=== PATIENT | female | born 1975 | race Caucasian/White ===

== ENCOUNTER 2017-04-06 19:23 | Emergency (ER) | payer SELFPAY ==
[2017-04-06] MEDS ORDERED: Sodium Chloride 0.9% 2.5 ML Syringe FLUSH PRN (19:36)
[2017-04-06] MEDS ORDERED: Famotidine 20 MG/2 ML SDV IVPUSH ONE (19:36)
[2017-04-06] MEDS ORDERED: Aspirin 81 MG Tab.Chew PO ONE (19:36)
[2017-04-06] MEDS ORDERED: Sodium Chloride 0.9% 1,000 ML IV ONE (19:36)
[2017-04-06] MEDS ORDERED: Sodium Chloride 0.9% 10 ML Syringe FLUSH PRN (19:36)
--- NOTE | 2017-04-06 19:41 | EDM.PDOC ---
ED HPI GENERAL MEDICAL PROBLEM - General Chief Complaint: Chest Pain Stated Complaint: CHEST PAIN Time Seen by Provider: 04/06/17 19:28 - History of Present Illness INITIAL COMMENTS - FREE TEXT/NARRATIVE: HISTORY AND PHYSICAL: History of present illness: The patient is a 42-year-old female with a history of asthma and allergies to dust recently moved here 2 months ago and presents with complaints of lower mid chest pain and epigastric discomfort that woke her from sleep at 5:30 this morning. The patient states that for the last 1 week she has had issues with foods bothering her, meaning that she feels like they're upsetting her stomach and/or the smell making her feel somewhat nauseated And she has never had those issues before. The patient states she had a normal day yesterday and slept fine when she woke at 5:30 and noticed this discomfort which was a pressure aching pain at the lower part of her chest and her mid abdomen and radiated to the left and to the right. She felt sweaty and short of breath as well as nauseated at that time. She had no vomiting or diarrhea. She says that the discomfort was very strong from 5:30 to 10:30 this morning and then seemed to ease up but it has been constant throughout the day starting at 5:30 AM until present presentation, 10 hours later.. She did not come here because she has no insurance. Patient does not take any medication for this discomfort and it has been persistent all day. When started she rates it as a 10 over 10 and currently in the ER she rates as 8/10. Patient has no significant social history no cardiac family history. She has no recent trauma. She has no upper respiratory symptoms such as cough runny nose or sore throat and she does not feel like her asthma is flaring up. Patient had a total hysterectomy and has no history of GI problems. Patient has no leg pain or leg asymmetry Review of systems: As per history of present illness and below otherwise all systems reviewed and negative. Past medical history: As per history of present illness and as reviewed below otherwise noncontributory. Surgical history: As per history of present illness and as reviewed below otherwise noncontributory. Social history: No reported history of drug or alcohol abuse. Family history: As per history of present illness and as reviewed below otherwise noncontributory. Physical exam: Gen.: Well-developed overweight female who is nontoxic and speaking clearly and easily in the ED. She moves without distress. HEENT: Atraumatic, normocephalic, pupils reactive, negative for conjunctival pallor or scleral icterus, mucous membranes moist, throat clear, neck supple, nontender, trachea midline. Lungs: Clear to auscultation, breath sounds equal bilaterally, chest nontender. Heart: S1S2, regular, negative for clicks, rubs, or JVD. Abdomen: Soft, nondistended, there is mild tenderness in the epigastrium on palpation but no rebound or guarding. Bowel sounds are hypoactive Negative for masses or hepatosplenomegaly. Negative for costovertebral tenderness. Pelvis: Stable nontender. Genitourinary: Deferred. Rectal: Deferred. Extremities: Atraumatic, negative for cords or calf pain. Neurovascular unremarkable. No pedal edema or leg asymmetry is noted Neuro: Awake, alert, oriented. Cranial nerves II through XII unremarkable. Cerebellum unremarkable. Motor and sensory unremarkable throughout. Exam nonfocal. Diagnostics: EKG CBC CMP amylase lipase troponin chest x-ray We'll consider CT scan of the abdomen and pelvis pending the above results Therapeutics: IV O2 monitor aspirin IV fluids nitroglycerin sublingual 2003: After 2 sublingual nitroglycerin the patient's pain is completely relieved. We'll place half inch of nitro paste and continue with our workup. 2100: I discussed with the patient at length my recommendation for observation admission and the need for further testing as it is unclear the cause of her pain. She did improve with nitroglycerin. She is currently deciding if she wants to stay or not she has financial concerns. She understands the risks of not staying in the hospital and of my concerns and is awake alert and competent and accepts those risks if she opts to go home. 2117: After consideration and discussion with family via telephone the patient would like to choose to go home and follow-up in the clinic for an expedited follow-up and outpatient management. She is aware of my concerns and the risks involved and accepts all of that. Impression: Atypical chest pain etiology unclear refusing admission Definitive disposition and diagnosis as appropriate pending reevaluation and review of above. Middle Chest Pain Score (Numeric/FACES): 8 - Related Data Allergies Allergy/AdvReac Type Severity Reaction Status Date / Time Penicillins Allergy Hives Verified 04/06/17 19:37 Sulfa (Sulfonamide Allergy Vomiting Verified 04/06/17 19:37 Antibiotics) Home Meds: Home Meds . [No Known Home Meds] 04/06/17 [History] ED ROS GENERAL - Review of Systems Review Of Systems: ROS reveals no pertinent complaints other than HPI. ED EXAM, GENERAL - Physical Exam Exam: See Below (See dictation) Course - Vital Signs Last Recorded V/S: Last Vital Signs Temp 36.8 C 04/06/17 20:55 Pulse 69 04/06/17 20:55 Resp 18 04/06/17 20:55 BP 107/73 04/06/17 20:55 Pulse Ox 98 04/06/17 20:55 - Orders/Labs/Meds Orders: Active Orders 24 hr Category Date Time Status Cardiac Monitoring [RC] . DIRECTED Care 04/06/17 19:36 Active EKG Documentation Completion [RC] STAT Care 04/06/17 19:36 Active Oxygen Therapy, ED [RC] ASDIRECTED Care 04/06/17 19:36 Active Pulse Oximetry [RC] ASDIRECTED Care 04/06/17 19:36 Active Chest 1V Frontal [CR] Stat Exams 04/06/17 19:36 Taken Sodium Chloride 0.9% [Saline Flush] Med 04/06/17 19:36 Active 10 ml FLUSH ASDIRECTED PRN Sodium Chloride 0.9% [Saline Flush] Med 04/06/17 19:36 Active 2.5 ml FLUSH ASDIRECTED PRN Saline Lock Insert [OM.PC] Stat Oth 04/06/17 19:36 Ordered Medication Orders Sodium Chloride (Saline Flush) 10 ml FLUSH ASDIRECTED PRN PRN Reason: Keep Vein Open Sodium Chloride (Saline Flush) 2.5 ml FLUSH ASDIRECTED PRN PRN Reason: Keep Vein Open Labs: Laboratory Tests 04/06/17 04/06/17 04/06/17 Range/Units 19:40 19:40 19:40 WBC 8.78 (4.0-11.0) K/uL RBC 4.69 (4.30-5.90) M/uL Hgb 13.9 (12.0-16.0) g/dL Hct 42.5 (36.0-46.0) % MCV 90.6 (80.0-98.0) fL MCH 29.6 (27.0-32.0) pg MCHC 32.7 (31.0-37.0) g/dL RDW Std Deviation 44.1 (28.0-62.0) fl RDW Coeff of [place] 13 (11.0-15.0) % Plt Count 315 (150-400) K/uL MPV 10.30 (7.40-12.00) fL Neut % (Auto) 65.2 (48.0-80.0) % Lymph % (Auto) 25.2 (16.0-40.0) % [place] % (Auto) 7.4 (0.0-15.0) % Eos % (Auto) 2.1 (0.0-7.0) % Baso % (Auto) 0.1 (0.0-1.5) % Neut # (Auto) 5.7 (1.4-5.7) K/uL Lymph # (Auto) 2.2 (0.6-2.4) K/uL [place] # (Auto) 0.7 (0.0-0.8) K/uL Eos # (Auto) 0.2 (0.0-0.7) K/uL Baso # (Auto) 0.0 (0.0-0.1) K/uL Nucleated RBC % 0.0 /100WBC Nucleated RBCs # 0 K/uL Sodium 141 (136-146) mmol/L Potassium 4.0 (3.5-5.1) mmol/L Chloride 110 (98-110) mmol/L Carbon Dioxide 21 (21-31) mmol/L BUN 9 (6.0-23.0) mg/dL Creatinine 0.9 (0.6-1.5) mg/dL Est Cr Clr Drug Dosing 74.02 mL/min Estimated GFR (MDRD) > 60.0 ml/min Glucose 104 (60-110) mg/dL Calcium 8.7 L (8.8-10.8) mg/dL Total Bilirubin 0.3 (0.1-1.5) mg/dL AST 22 (5-40) IU/L ALT 20 (8-54) IU/L Alkaline Phosphatase 61 (40-150) Troponin I < 0.10 (0.0-0.29) NG/ML Total Protein 7.1 (6.0-8.0) g/dL Albumin 4.4 (3.5-5.0) g/dL Globulin 2.7 (2.0-3.5) g/dL Albumin/Globulin Ratio 1.6 (1.3-2.8) Amylase 34 (10-90) U/L Lipase 21 (7-80) U/L Meds: Medications Generic Name Dose Route Start Last Admin Trade Name Freq PRN Reason Stop Dose Admin Sodium Chloride 10 ml 04/06/17 19:36 Saline Flush FLUSH ASDIRECTED PRN Keep Vein Open Sodium Chloride 2.5 ml 04/06/17 19:36 Saline Flush FLUSH ASDIRECTED PRN Keep Vein Open Discontinued Medications Generic Name Dose Route Start Last Admin Trade Name Freq PRN Reason Stop Dose Admin Acetaminophen 1,000 mg 04/06/17 20:07 04/06/17 20:13 Tylenol Extra Strength PO 04/06/17 20:08 1,000 mg ONETIME ONE Administration Aspirin 324 mg 04/06/17 19:36 04/06/17 19:55 Aspirin PO 04/06/17 19:37 324 mg ONETIME ONE Administration Famotidine 20 mg 04/06/17 19:36 04/06/17 19:56 Pepcid IVPUSH 04/06/17 19:37 20 mg ONETIME ONE Administration Sodium Chloride 1,000 mls @ 999 mls/hr 04/06/17 19:36 04/06/17 19:56 Normal Saline IV 04/06/17 20:36 999 mls/hr STAT ONE Administration Nitroglycerin 0.4 mg 04/06/17 19:45 04/06/17 20:06 Nitrostat SL 04/06/17 19:56 Not Given Q5M DARCI Nitroglycerin 0.5 gm 04/06/17 20:07 04/06/17 20:13 Nitro-Bid 2% TOP 04/06/17 20:08 0.5 gm ONETIME ONE Administration Departure - Departure Time of Disposition: 21:20 Disposition: Home, Self-Care 01 Condition: Good Clinical Impression: Atypical chest pain, Care refused by patient - Discharge Information Forms: ED Department Discharge Additional Instructions: The following information is given to patients seen in the emergency department who are being discharged to home. This information is to outline your options for follow-up care. We provide all patients seen in our emergency department with a follow-up referral. The need for follow-up, as well as the timing and circumstances, are variable depending upon the specifics of your emergency department visit. If you don't have a primary care physician on staff, we will provide you with a referral. We always advise you to contact your personal physician following an emergency department visit to inform them of the circumstance of the visit and for follow-up with them and/or the need for any referrals to a consulting specialist. The emergency department will also refer you to a specialist when appropriate. This referral assures that you have the opportunity for followup care with a specialist. All of these measure are taken in an effort to provide you with optimal care, which includes your followup. Under all circumstances we always encourage you to contact your private physician who remains a resource for coordinating your care. When calling for followup care, please make the office aware that this follow-up is from your recent emergency room visit. If for any reason you are refused follow-up, please contact the [facility] emergency department at and ask to speak to the emergency department charge nurse. [facility] Primary care- [place] [address] Please contact the clinic tomorrow for an expedited ED follow-up clinic appointment as we discussed. If you have difficulty getting in the next few days please call the ER and speak to the charge nurse. Please take a baby aspirin every day and to you're followed up in the clinic and return to the ER as needed and as discussed. Please eat a low-fat diet. - My Orders Last 24 Hours: My Active Orders 04/06/17 19:36 Cardiac Monitoring [RC] . DIRECTED EKG Documentation Completion [RC] STAT Oxygen Therapy, ED [RC] ASDIRECTED Pulse Oximetry [RC] ASDIRECTED Chest 1V Frontal [CR] Stat Sodium Chloride 0.9% [Saline Flush] 10 ml FLUSH ASDIRECTED PRN Sodium Chloride 0.9% [Saline Flush] 2.5 ml FLUSH ASDIRECTED PRN Saline Lock Insert [OM.PC] Stat - Assessment/Plan Last 24 Hours: My Active Orders 04/06/17 19:36 Cardiac Monitoring [RC] . DIRECTED EKG Documentation Completion [RC] STAT Oxygen Therapy, ED [RC] ASDIRECTED Pulse Oximetry [RC] ASDIRECTED Chest 1V Frontal [CR] Stat Sodium Chloride 0.9% [Saline Flush] 10 ml FLUSH ASDIRECTED PRN Sodium Chloride 0.9% [Saline Flush] 2.5 ml FLUSH ASDIRECTED PRN Saline Lock Insert [OM.PC] Stat
[2017-04-06] MEDS: Nitroglycerin 0.4 MG Tab.SL SL SCH ×3 (19:55→20:06)
[2017-04-06] MEDS ORDERED: Nitroglycerin 2% Oint 1 GM UD Packet TOP ONE (20:07)
[2017-04-06] MEDS ORDERED: Acetaminophen 500 MG Tab PO ONE (20:07)
[2017-04-06 20:14] LABS: CHLORIDE,CL 110 mmol/L (98-110); SODIUM,NA 141 mmol/L (136-146)
[2017-04-06 21:40] VITALS: BP 109/72
--- NOTE | 2017-04-07 13:57 | CR ---
EXAM DATE: 04/06/17 PATIENT'S AGE: 42 Patient: ADRIAN RAY Facility: [place], [place] Site . Site : [id number] Study: XRay Chest [id number]/18/2017 8:10:12 PM Ordering Physician: Anand Barron Final Report: HISTORY: Chest pain, shortness of breath. TECHNIQUE: One view of the chest. COMPARISON: No prior. FINDINGS: Cardiac size within normal limits normal limits accounting for technique. No pulmonary vascular redistribution. No focal lung infiltrate or pulmonary edema. No pneumothorax or pleural effusion. IMPRESSION: No acute disease. Dictated by Gustabo De La Garza MD @ 04/06/2017 8:59:51 PM Dictated by: Gustabo De La Garza MD @ 04/06/2017 20:59:57 (Electronic Signature) Report Signed by Proxy. [facility]
== END 2017-04-06 21:45 | disposition home or self-care (01) ==
LOC: MW.ED 19:23
DX: R07.89 Other chest pain (principal); J45.909 Unspecified asthma, uncomplicated; Z88.0 Allergy status to penicillin; Z88.2 Allergy status to sulfonamides
CPT/HCPCS: 36415; 71010; 80053; 82150; 83690; 84484; 85025; 93005; 96361; 96374; 99285; A9270; J7040